=== PATIENT | male | born 1985 | race Caucasian/White ===

== ENCOUNTER 2018-04-25 13:40 | Emergency (ER) | payer OTHER ==
[~2018-04-25] VITALS: Ht 177.8 cm; Wt 82.1 kg
[~2018-04-25 13:40] MED LIST: CLARITIN5 MG; ISENTRESS; ISENTRESS400 MG; PNEU16DI2; TRUVADA 167 MG1 EACH
[2018-04-25] MEDS ORDERED: DESCOVY 200-251 EACH (14:44)
[2018-04-25] MEDS ORDERED: MODAFINIL100 MG (14:45)
[2018-04-25] MEDS ORDERED: ALBUTEROL1.25 MG/3 (14:45)
[2018-04-25] MEDS ORDERED: LEVAQUIN750 MG (14:46)
[2018-04-25] MEDS ORDERED: TESSALON PERLE100 M1 (14:46)
[2018-04-25] MEDS ORDERED: BUDESONIDE0.5 MG/2 M (14:46)
[2018-04-25] MEDS ORDERED: LAMICTAL200 M1 (14:47)
== END 2018-04-25 20:46 | disposition home or self-care (01) ==
LOC: ER 13:40
DX: J06.9 Acute upper respiratory infection, unspecified (principal); K52.9 Noninfective gastroenteritis and colitis, unspecified

== ENCOUNTER 2019-12-17 09:53 | Emergency (ER) | payer OTHER ==
[~2019-12-17] VITALS: Ht 177.8 cm; Wt 78.0 kg
[~2019-12-17 09:53] MED LIST changes: +ALBUTEROL1.25 MG/3; +BUDESONIDE0.5 MG/2 M; +DESCOVY 200-251 EACH; +LAMICTAL200 M1; +LEVAQUIN750 MG; +MODAFINIL100 MG; +TESSALON PERLE100 M1
[2019-12-17] MEDS ORDERED: VISTARIL25 MG (11:02)
[2019-12-17] MEDS ORDERED: PEPCID AC20 MG PO (11:03)
== END 2019-12-17 19:07 | disposition home or self-care (01) ==
LOC: ER 09:53
DX: A08.8 Other specified intestinal infections (principal); R10.13 Epigastric pain; Z03.818 Encounter for observation for suspected exposure to other biological agents ruled out